=== PATIENT | male | born 1960 | race African-American/Black ===

== ENCOUNTER 2023-06-07 16:01 | Emergency (ER) | payer MEDICAID ==
[~2023-06-07] VITALS: Ht 180.3 cm; Wt 115.0 kg
[2023-06-07 16:06] VITALS: BP 149/98; PULSE 73; RESP 18; TEMP 98.3; O2SAT 100
== END 2023-06-07 23:51 | disposition left against medical advice (07) ==
LOC: ER 16:01
DX: Z53.21 Procedure and treatment not carried out due to patient leaving prior to being seen by health care provider (principal)
CPT/HCPCS: 99281